=== PATIENT | male | born 1975 | race Caucasian/White ===

== ENCOUNTER 2016-09-15 16:08 | Emergency (ER) | payer OTHER ==
[2016-09-15 16:22] VITALS: TEMP 98.2
--- NOTE | 2016-09-15 18:04 | RAD ---
HISTORY: SOB COMPARISON: None available. TECHNIQUE: Chest PA and lateral FINDINGS: Examination limited by habitus per LUNGS: No focal consolidation. Please note that chest x-ray has limited sensitivity for the detection of pulmonary masses. PLEURA: No significant pleural effusion identified. No definite pneumothorax . CARDIOVASCULAR: The cardiomediastinal silhouette appears within normal limits of size. OSSEOUS STRUCTURES: Mild degenerative changes. VISUALIZED UPPER ABDOMEN: Mild elevation of the right hemidiaphragm. OTHER FINDINGS: None. IMPRESSION: No focal consolidation, significant pleural effusion, or definite pneumothorax identified.
--- NOTE | 2016-09-15 18:33 | C.PDOC ---
History Of Present Illness 41 year old male presents to the ED with complaints of uncontrolled blood pressure with associated nausea and headache beginning today. Patient states he currently weights 271 lbs, with a previous maximum weight of 300 lbs. He notes taking 100 mg of Losartan once a day but ran out two weeks ago. Patient denies any fever, headache, or chest pain. Time Seen by Provider: 09/15/16 17:32 Chief Complaint (Nursing): High Blood Pressure History Per: Patient History/Exam Limitations: no limitations Onset/Duration Of Symptoms: Hrs Current Symptoms Are (Timing): Still Present Associated Symptoms: Headache. denies: Chest Pain, Dizziness Recent travel outside of the [place]: No Past Medical History Reviewed: Historical Data, Nursing Documentation, Vital Signs Vital Signs: Last Vital Signs Temp 98.2 F 09/15/16 16:17 Pulse 75 09/15/16 18:46 Resp 20 09/15/16 18:46 BP 182/106 H 09/15/16 18:46 Pulse Ox 94 L 09/15/16 18:59 - Medical History PMH: HTN Family History: States: Unknown Family Hx - Social History Hx Alcohol Use: Yes Hx Substance Use: No - Immunization History Hx Tetanus Toxoid Vaccination: No Hx Influenza Vaccination: No Hx Pneumococcal Vaccination: No Review Of Systems Constitutional: Positive for: Other (Patient snores, has apneic periods, daytime somnolence, wakes with headaches, and has difficulty concentrating and with weight loss. ). Negative for: Fever, Chills Cardiovascular: Negative for: Chest Pain Respiratory: Negative for: Cough, Shortness of Breath Gastrointestinal: Positive for: Nausea. Negative for: Vomiting, Abdominal Pain , Diarrhea Neurological: Positive for: Headache Physical Exam - Physical Exam Appears: Non-toxic, No Acute Distress, Other (Patient is morbidly obese. Small oropharynx.) Skin: Warm, Diaphoretic Head: Atraumatic Eye(s): bilateral: Normal Inspection, PERRL, EOMI Oral Mucosa: Moist Tongue: Other (Large tongue) Neck: Other (Wide thick neck ) Chest: Symmetrical, No Deformity Cardiovascular: Rhythm Regular Respiratory: Normal Breath Sounds, No Rhonchi, No Wheezing Gastrointestinal/Abdominal: Soft, No Tenderness, No Distention, No Guarding, No Rebound Extremity: Normal ROM, No Tenderness Neurological/Psych: Oriented x3 ED Course And Treatment - Laboratory Results Result Diagrams: 09/15/16 18:46 09/15/16 18:46 ECG: Interpreted By Me ECG Rhythm: Sinus Rhythm ECG Interpretation: Normal Rate From EC O2 Sat by Pulse Oximetry: 96 (room air ) Pulse Ox Interpretation: Normal (96) - Radiology CXR: Viewed By Me, Read By Radiologist CXR Interpretation: Yes: No Acute Disease, Other (Impression: No focal consolidation, significant pleural effusion, or definite pneumothorax identified.). No: Infiltrates, Pnemothorax Progress Note: Labetolol 200 mg PO Reevaluation Time: 19:24 Medical Decision Making Medical Decision Making: morbid obesity 300# down to 271# s/s of NEENA, anxiety Uncontrolled BP poor med compliance. Disposition Doctor Will See Patient In The: Office Counseled Patient/Family Regarding: Studies Performed, Diagnosis - Disposition Disposition: HOME/ ROUTINE Disposition Time: 19:25 Condition: GOOD Forms: [facility] (Kiswahili) - Clinical Impression Clinical Impression: Hypertension, NEENA (obstructive sleep apnea) - Scribe Statement The provider has reviewed the documentation as recorded by the Scribtono Rosales All medical record entries made by the Scribe were at my direction and personally dictated by me. I have reviewed the chart and agree that the record accurately reflects my personal performance of the history, physical exam, medical decision making, and the department course for this patient. I have also personally directed, reviewed, and agree with the discharge instructions and disposition.
[2016-09-15 18:49] LABS: BASO # 0.1 K/uL (0.0-0.2); BASO % 0.5 % (0.0-2.0); EOS % 0.4 % (0.0-4.0); HEMOGLOBIN 14.4 g/dL (12.0-18.0); LYMPH # 2.2 K/uL (1.0-4.3); LYMPH % 23.6 % (20.0-40.0); MEAN CELL VOLUME 79.9 fL (80.0-94.0); MEAN CORPUSCULAR HEMOGLOBIN 26.3 pg (27.0-31.0); MEAN CORPUSCULAR HGB CONC 32.9 g/dL (33.0-37.0); MONO # 0.4 K/uL (0.0-0.8); MONO % 4.3 % (0.0-10.0); NEUT # 6.8 K/uL (1.8-7.0); NEUT % 71.2 % (50.0-75.0); RBC 5.47 Mil/uL (4.40-5.90); RED CELL DISTRIBUTION WIDTH 14.5 % (11.5-14.5); WHITE BLOOD COUNT 9.5 K/uL (4.8-10.8)
[2016-09-15 18:57] LABS: ALBUMIN 4.2 g/dL (3.5-5.0)
[2016-09-15 19:00] LABS: ALB/GLOB RATIO 1.2 (1.0-2.1); AST/SGOT 28 U/L (17-59); GFR AFRICAN-AMERICAN > 60; GFR NON-AFRICAN AMERICAN > 60
[2016-09-15 19:01] LABS: ALT/SGPT 36 U/L (21-72); BLOOD UREA NITROGEN 15 mg/dL (9-20); CALCIUM 8.9 mg/dl (8.6-10.4)
[2016-09-15 19:10] LABS: B-TYPE NATRIURETIC PEPTIDE 366 pg/mL (0-450)
[2016-09-15 21:48] VITALS: BP 165/95; PULSE 72; RESP 20; O2SAT 95
--- NOTE | 2016-09-16 12:31 | CARD ---
APPROVED REPORT EKG Measurement Heart [id number] <Conclusion> Normal sinus rhythm Possible Left atrial enlargement ST & T wave abnormality, consider lateral ischemia Abnormal ECG
== END 2016-09-15 22:32 | disposition home or self-care (01) ==
LOC: C.ER 16:08
DX: I10 Essential (primary) hypertension (principal); G47.33 Obstructive sleep apnea (adult) (pediatric)

== ENCOUNTER 2017-10-09 11:57 | Emergency (ER) | payer SELFPAY ==
[2017-10-09 12:04] VITALS: BMI 40.0
[2017-10-09 12:06] VITALS: RESP 18
--- NOTE | 2017-10-09 12:44 | C.PDOC ---
History Of Present Illness 42 year old male presents to the emergency department with complaints of a fever persisting for the last week. He reports headache, myalgias, decreased appetite, and one episode of a nosebleed several days ago. Patient states that he was evaluated at an urgent care where his symptoms were diagnosed as viral. Patient states that his symptoms still persist today after taking Advil at 4am this morning. Time Seen by Provider: 10/09/17 12:24 Chief Complaint (Nursing): Fever History Per: Patient History/Exam Limitations: no limitations Onset/Duration Of Symptoms: Other (1 week) Current Symptoms Are (Timing): Still Present Location Of Pain: Diffuse Myalgias, Headache Associated Symptoms: Fever, Myalgias, Other (epistaxis 1 episode, decreased appetite) Past Medical History Reviewed: Historical Data, Nursing Documentation, Vital Signs Vital Signs: Last Vital Signs Temp 97.5 F L 10/09/17 14:09 Pulse 71 10/09/17 15:13 Resp 18 10/09/17 15:13 BP 139/84 10/09/17 15:13 Pulse Ox 99 10/09/17 15:13 - Medical History PMH: HTN Surgical History: No Surg Hx Family History: States: No Known Family Hx - Social History Hx Alcohol Use: Yes Hx Substance Use: No - Immunization History Hx Tetanus Toxoid Vaccination: No Hx Influenza Vaccination: No Hx Pneumococcal Vaccination: No Review Of Systems Except As Marked, All Systems Reviewed And Found Negative. Constitutional: Positive for: Fever, Malaise ENT: Positive for: Nose Discharge (epistaxis 1 episode) Gastrointestinal: Positive for: Other (decreased appetite) Musculoskeletal: Positive for: Other (myalgias) Neurological: Positive for: Headache Physical Exam - Physical Exam Appears: Toxic (mild), In Acute Distress (moderate) Head: Atraumatic, Normacephalic Eye(s): bilateral: Normal Inspection, Other (No photophobia) Nose: Normal Neck: Normal, Supple Chest: Symmetrical Cardiovascular: Rhythm Regular, No Murmur Respiratory: Normal Breath Sounds, No Rales, No Rhonchi, No Wheezing Extremity: Normal ROM Neurological/Psych: Oriented x3, Normal Speech, Normal Cognition ED Course And Treatment - Laboratory Results Result Diagrams: 10/09/17 13:02 10/09/17 13:02 ECG Rhythm: Sinus Rhythm ECG Interpretation: Normal Rate From EC O2 Sat by Pulse Oximetry: 97 (RA) Pulse Ox Interpretation: Normal - Other Rad CXR X-Ray: Viewed By Me, Read By Radiologist Interpretation: IMPRESSION: Pattern suspicious for interval pulmonary vascular congestion. Clinically correlate further. Cardiomegaly not excluded. - CT Scan/US CT Head Other Rad Studies (CT/US): Read By Radiologist, Radiology Report Reviewed CT/US Interpretation: IMPRESSION: Unremarkable noncontrast head CT. Progress Note: Plan: Venous Blood Gas. CT Head w/o Contrast. CMP. Magnesium. Phosphorus. CBC. PTT. Prothrombin Time. CXR. NaCl IV Fluids. Toradol 30mg IVP. Tylenol 975 mg PO. Blood Culture. Urine Culture. Urinalysis Progress - Re-Evaluation Re-evaluation Note: 10/09/17 15:17 NONTOXIC FEELS BETTER VSS. +UO - Data Reviewed Data Reviewed: Lab, Diagnostic imaging, EKG, Old records Disposition Counseled Patient/Family Regarding: Studies Performed, Diagnosis, Need For Followup - Disposition Referrals: [facility] [Outside] [facility] [Outside] Disposition: HOME/ ROUTINE Disposition Time: 15:18 Condition: IMPROVED Instructions: Fever of Unknown Origin (DC) Forms: [employer] (Martiniquais) Print Language: OMANI - Clinical Impression Clinical Impression: Fever - Scribe Statement The provider has reviewed the documentation as recorded by the Scribe (Zack Degroot) Provider Attestation: All medical record entries made by the Scribe were at my direction and personally dictated by me. I have reviewed the chart and agree that the record accurately reflects my personal performance of the history, physical exam, medical decision making, and the department course for this patient. I have also personally directed, reviewed, and agree with the discharge instructions and disposition.
[2017-10-09 13:05] LABS: BASO % 0.3 % (0.0-2.0); HEMOGLOBIN 14.2 g/dL (12.0-18.0); LYMPH # 0.9 K/uL (1.0-4.3); LYMPH % 9.7 % (20.0-40.0); MEAN CORPUSCULAR HEMOGLOBIN 27.4 pg (27.0-31.0); MEAN CORPUSCULAR HGB CONC 35.1 g/dL (33.0-37.0); MEAN PLATELET VOLUME 7.5 fL (7.2-11.7); MONO # 0.7 K/uL (0.0-0.8); MONO % 7.6 % (0.0-10.0); NEUT # 7.6 K/uL (1.8-7.0); NEUT % 82.4 % (50.0-75.0); PLATELET COUNT 264 K/uL (130-400); RBC 5.17 Mil/uL (4.40-5.90); RED CELL DISTRIBUTION WIDTH 13.1 % (11.5-14.5); WHITE BLOOD COUNT 9.3 K/uL (4.8-10.8)
[2017-10-09 13:10] LABS: VENOUS BLOOD GAS BASE EXCESS 5.1 mmol/L (0.0-2.0); VENOUS BLOOD GAS PCO2 27 mmHg (40-60); VENOUS BLOOD GAS PO2 23 mm/Hg (30-55); VENOUS BLOOD PH 7.59 (7.32-7.43)
[2017-10-09 13:23] LABS: INR 1.4; PROTHROMBIN TIME 15.8 SECONDS (9.7-12.2)
[2017-10-09 13:25] LABS: ALBUMIN 4.2 g/dL (3.5-5.0); ALT/SGPT 80 U/L (21-72); AST/SGOT 81 U/L (17-59); BLOOD UREA NITROGEN 11 mg/dL (9-20); CALCIUM 9.3 mg/dl (8.6-10.4); GFR NON-AFRICAN AMERICAN > 60
--- NOTE | 2017-10-09 13:40 | CT ---
Date of service: 10/09/2017 PROCEDURE: CT HEAD WITHOUT CONTRAST. HISTORY: headache fever COMPARISON: None available. TECHNIQUE: Axial computed tomography images were obtained through the head/brain without intravenous contrast. Radiation dose: Total exam DLP = 1246.95 mGy-cm. This CT exam was performed using one or more of the following dose reduction techniques: Automated exposure control, adjustment of the mA and/or kV according to patient size, and/or use of iterative reconstruction technique. FINDINGS: HEMORRHAGE: No intracranial hemorrhage. BRAIN: Normal rankin-white matter differentiation and density are appreciated throughout the cerebrum and cerebellum with the brainstem appearing unremarkable as well. There is no mass effect. There is no suspicious extra-axial fluid collection and the midline brain anatomy appears diffusely unremarkable. VENTRICLES: Unremarkable. No hydrocephalus. CALVARIUM: Unremarkable. PARANASAL SINUSES: Unremarkable as visualized. No significant inflammatory changes. MASTOID AIR CELLS: Unremarkable as visualized. No inflammatory changes. OTHER FINDINGS: None. IMPRESSION: Unremarkable noncontrast head CT.
[2017-10-09 13:46] LABS: SQUAMOUS EPITHIAL 1 /hpf (0-5); URINE BILIRUBIN NEGATIVE (NEGATIVE); URINE BLOOD 2+ (NEGATIVE); URINE CLARITY Hazy (Clear); URINE COLOR Amber (YELLOW); URINE GLUCOSE (UA) NORMAL (Normal); URINE LEUKOCYTE ESTERASE NEG Leu/uL (Negative); URINE PROTEIN 2+ mg/dL (NEGATIVE)
--- NOTE | 2017-10-09 14:01 | RAD ---
Date of service: 10/09/2017 HISTORY: Sepsis Patient COMPARISON: Chest radiographs 09/15/2016. FINDINGS: LUNGS: No active pulmonary disease. PLEURA: No significant pleural effusion identified, no pneumothorax apparent. CARDIOVASCULAR: Prominent cardiac silhouette is suggested with hilar vascular markings increased suspicious for pulmonary vascular congestion. OSSEOUS STRUCTURES: No significant abnormalities. VISUALIZED UPPER ABDOMEN: Normal. OTHER FINDINGS: None. IMPRESSION: Pattern suspicious for interval pulmonary vascular congestion. Clinically correlate further. Cardiomegaly not excluded.
[2017-10-09 14:03] LABS: BANDS 1 % (0-2); LYMPHOCYTE 9 % (20-40); MONOCYTE 2 % (0-10); NEUTROPHIL 88 % (50-75); PLATELET ESTIMATE NORMAL (NORMAL); TOTAL CELLS COUNTED 100
--- NOTE | 2017-10-09 14:59 | US ---
Date of service: 10/09/2017 HISTORY: Fever, evaluate for acute cholecystitis COMPARISON: None. TECHNIQUE: Sonographic evaluation of the right upper quadrant of the abdomen. FINDINGS: LIVER: Measures 21 cm in length. There is diffuse increased echogenicity of the liver parenchyma. No mass. No intrahepatic bile duct dilatation. GALLBLADDER: There are no gallstones, wall thickening or pericholecystic fluid. The sonographic Ospina's sign is negative. COMMON BILE DUCT: Measures 4.0 mm. No stones. No dilatation. PANCREAS: Unremarkable as visualized. No mass. No ductal dilatation. RIGHT KIDNEY: Measures 11.7 cm in length. Normal echogenicity. No calculus, mass, or hydronephrosis. AORTA: No aneurysmal dilatation. IVC: Unremarkable. OTHER FINDINGS: None . IMPRESSION: Examination is limited due to patient body habitus. Allowing for this, mild hepatomegaly. Diffuse increased echogenicity in the liver may reflect hepatic steatosis however parenchymal infectious/ inflammatory etiologies cannot be entirely excluded. Clinical and laboratory correlation is advised. . No cholelithiasis or biliary dilatation.
[2017-10-09 15:14] VITALS: BP 139/84; PULSE 71
[2017-10-09 15:18] VITALS: O2SAT 97
[2017-10-09 15:25] VITALS: TEMP 97.6
--- NOTE | 2017-10-12 16:53 | CARD ---
APPROVED REPORT Date of service: 10/09/2017 EKG Measurement Heart [id number] <Conclusion> Normal sinus rhythm Normal ECG
== END 2017-10-09 15:25 | disposition home or self-care (01) ==
LOC: C.ER 11:57
DX: R50.9 Fever, unspecified (principal); I10 Essential (primary) hypertension
CPT/HCPCS: 70450; 71045; 76705; 80053; 81001; 82803; 83735; 84100; 85025; 85610; 85730; 87040; 87086; 96361; 96374; 99285; J1885; J7030